=== PATIENT | female | born 1960 | race African-American/Black ===

== ENCOUNTER 2019-03-25 20:41 | Emergency (ER) | payer BC ==
[~2019-03-25] VITALS: Ht 160 cm; Wt 53.0 kg
[2019-03-25 21:56] LABS: BASOPHILS % 0.8 % (0.0-2.0); EOSINOPHILS % 1.4 % (0.0-5.0); HEMATOCRIT. 35.8 % (36.0-48.0); HEMOGLOBIN. 11.8 g/dL (12.0-16.0); LYMPHOCYTES % 10.1 % (20.0-50.0); MEAN CORPUSCULAR HEMOGLOBIN 31.5 pg (28.0-32.0); MEAN CORPUSCULAR VOLUME 95.4 fL (81.0-99.0); MONOCYTES % 5.1 % (2.0-8.0); NEUTROPHILS % 82.6 % (40.0-76.0); PLATELET 509 x1000/uL (130-400); RED BLOOD CELL COUNT 3.76 mill/uL (4.2-5.4); RED CELL DISTRIBUTION WIDTH 13.2 % (11.6-14.6)
[2019-03-25 22:03] LABS: CHLORIDE 107 mEq/L (98-107)
[2019-03-26] MEDS ORDERED: IOHEXOL-350 100 ML BOTTLE ONE (02:26)
[2019-03-26] MEDS ORDERED: DIPHENHYDRAMINE 50MG/ML VIAL IV PRN (05:00)
[2019-03-26] MEDS ORDERED: MORPHINE SULFATE 2 MG/ML CPJ (NOT FOR IM USE) IV PRN (05:00)
[2019-03-26] MEDS ORDERED: NA PHOS,M-B/NA PHOS,DI-BA ENEMA 118ML PR PRN (05:00)
[2019-03-26] MEDS ORDERED: ACETAMINOPHEN 325MG TABLET PO PRN (05:00)
[2019-03-26] MEDS ORDERED: GUAIFENESIN 200MG/10ML SUGAR FREE UDC PO PRN (05:00)
[2019-03-26] MEDS ORDERED: MAGNESIUM/ALUMINUM HYDROXIDE/SIMETHICONE 30ML UDC PO PRN (05:00)
[2019-03-26] MEDS ORDERED: IPRATROPIUM/ALBUTEROL 0.5-3(2.5)MG/3ML NEB NEB PRN (05:00)
[2019-03-26] MEDS ORDERED: DOCUSATE SODIUM 100MG CAPSULE PO PRN (05:00)
[2019-03-26] MEDS ORDERED: LORAZEPAM 2MG/ML CPJ IV PRN (05:00)
[2019-03-26] MEDS ORDERED: CLONIDINE 0.1MG TABLET PO PRN (05:00)
[2019-03-26 05:57] LABS: CHLORIDE 108 mEq/L (98-107)
[2019-03-26] MEDS: HYDROCODONE/ACETAMINOPHEN 5/325MG TABLET PO PRN (06:06)
[2019-03-26] MEDS: ONDANSETRON HCL 4MG/2ML INJ IV PRN (06:06)
[2019-03-26] MEDS: ASPIRIN 81MG EC TABLET PO SCH (09:00)
[2019-03-26] MEDS: ENOXAPARIN 40MG/0.4ML SYR SUBCUT SCH (11:00)
[2019-03-26 11:50] VITALS: BP 132/89
== END 2019-03-26 13:29 | disposition left against medical advice (07) ==
LOC: ER 20:41 → EDBEDREQTM 03-26 02:15 → EDBEDREQDT 03-26 02:15 → EDBEDREQ 03-26 02:15 → CANRESERV 03-26 11:57 → ENRESERV 03-26 11:57 → CANBEDREQ 03-26 13:09 → ER 03-26 13:29
DX: R07.9 Chest pain, unspecified (principal); I10 Essential (primary) hypertension; F17.210 Nicotine dependence, cigarettes, uncomplicated; Z88.8 Allergy status to other drugs, medicaments and biological substances
CPT/HCPCS: 36415; 71045; 71275; 80048; 80053; 83036; 83880; 84484; 85025; 85379; 93005; 96372; 96374; 99284; 99406; J1650; J2405; Q9967; 96375

== ENCOUNTER 2024-06-03 12:32 | Emergency (ER) | payer MEDICAID, OTHER ==
[~2024-06-03] VITALS: Ht 170.2 cm; Wt 66.0 kg
[~2024-06-03 12:32] MED LIST: AMLO10TA80 PO; ATOR10TA PO; HYDR-4001 PO; ONDA-239 PO
[2024-06-03 12:40] VITALS: TEMP 97.8
[2024-06-03] MEDS: METHYLPREDNISOLONE SOD SUCC 125MG/2ML (ACT-O-VIAL) IV STA (13:05)
[2024-06-03 13:12] LABS: BASOPHILS % 1.3 % (0.0-2.0); EOSINOPHILS % 7.3 % (0.0-5.0); HEMATOCRIT. 47.5 % (36.0-48.0); HEMOGLOBIN. 15.3 g/dL (12.0-16.0); LYMPHOCYTES % 24.8 % (20.0-50.0); MEAN CORPUSCULAR HEMOGLOBIN 30.2 pg (28.0-32.0); MEAN CORPUSCULAR HGB CONC 32.3 g/dL (31.0-37.0); MEAN CORPUSCULAR VOLUME 93.5 fL (81.0-99.0); MEAN PLATELET VOLUME 7.6 fl (7.4-10.4); MONOCYTES % 6.5 % (2.0-8.0); NEUTROPHILS % 60.1 % (40.0-76.0); PLATELET 363 x1000/uL (130-400); RED BLOOD CELL COUNT 5.08 mill/uL (4.2-5.4); RED CELL DISTRIBUTION WIDTH 13.2 % (11.6-14.6); WHITE BLOOD COUNT 10.7 x1000/uL (4.5-11.0)
[2024-06-03 13:15] VITALS: PULSE 93; RESP 21; O2SAT 100
[2024-06-03] MEDS: ALBUTEROL (0.083%) 2.5MG/3ML NEB HHN SCH (13:15)
[2024-06-03] MEDS: IPRATROPIUM BROMIDE (0.02%) 0.5MG/2.5ML NEB HHN STA (13:15)
[2024-06-03 13:20] LABS: CHLORIDE 108 mEq/L (98-107); POTASSIUM 3.4 mEq/L (3.5-5.1); SODIUM 142 mEq/L (136-145)
[2024-06-03 13:21] LABS: CALCIUM 10.2 mg/dL (8.7-10.4); CARBON DIOXIDE 25 mEq/L (21-32)
[2024-06-03 13:26] LABS: CREATININE 0.8 mg/dL (0.6-1.0); GLUCOSE 101 mg/dL (70-105); UREA NITROGEN BLOOD 6 mg/dL (9-23)
[2024-06-03 13:31] LABS: TROPONIN I HIGH SENSITIVITY < 4 ng/L (3.0-34)
[2024-06-03 13:38] VITALS: PULSE 99; RESP 20; O2SAT 100
[2024-06-03 13:44] VITALS: PULSE 97; RESP 20
[2024-06-03] MEDS ORDERED: AMOX1TAB16 MT (14:10)
[2024-06-03] MEDS ORDERED: AZIT250T12 PO (14:10)
[2024-06-03] MEDS ORDERED: FLUT1BLS3 INH (14:10)
[2024-06-03] MEDS ORDERED: P50 MT (14:10)
[2024-06-03] MEDS: CEFTRIAXONE 1GM/50ML 50 ML IV ONE (14:11)
[2024-06-03] MEDS: AZITHROMYCIN 500 MG TABLET PO ONE (14:11)
[2024-06-03 14:20] VITALS: BP 141/93; PULSE 102; RESP 16; O2SAT 98
== END 2024-06-03 15:00 | disposition home or self-care (01) ==
LOC: ER 12:32 → EDBEDREQ 12:54 → ER 15:00
DX: J44.1 Chronic obstructive pulmonary disease with (acute) exacerbation (principal); J18.9 Pneumonia, unspecified organism; I25.2 Old myocardial infarction; Z88.1 Allergy status to other antibiotic agents; Z79.899 Other long term (current) drug therapy
CPT/HCPCS: 80048; 85025; 84484; 36415; 71045; 94640; 93005; 99291; 96365; 96375; J0696; J2919; Z7610 ×4